=== PATIENT | male | born 1960 | race Hispanic/Latino ===

== ENCOUNTER 2017-04-15 07:19 | Day surgery (SDC) | payer MEDICARE ==
[2017-04-15] MEDS ORDERED: ECOTRIN PO NR (08:30)
[2017-04-15 08:39] LABS: Basophils % (Auto) 0.8 % (0.0-1.8); Eosinophils % (Auto) 6.4 % (0.0-4.3); Hematocrit 44.6 % (35.5-45.6); Hemoglobin 15.1 gm/dl (11.8-15.2); Mean Corpuscular HGB Conc 34 % (32-34); Mean Corpuscular Hemoglobin 32 pg (28-32); Mean Corpuscular Volume 95 fl (84-94); Platelet Count 113 K/mm3 (140-440); Red Blood Count 4.69 M/mm3 (3.65-5.03); Red Cell Distribution Width 14.5 % (13.2-15.2); White Blood Count 6.5 K/mm3 (4.5-11.0)
[2017-04-15] MEDS ORDERED: NACL 0.9% 500 ML 500 ML IV SCH (09:00)
[2017-04-15 09:25] LABS: INR 1.15 (0.87-1.13)
[2017-04-15 10:11] LABS: Anion Gap 17 mmol/L; BUN/Creatinine Ratio 18.57; Blood Urea Nitrogen 13 mg/dL (9-20); Calcium 8.8 mg/dL (8.4-10.2); Carbon Dioxide 22 mmol/L (22-30); Chloride 102.6 mmol/L (98-107); Glucose 111 mg/dL (75-100); Potassium 4.2 mmol/L (3.6-5.0); Sodium 137 mmol/L (137-145)
[2017-04-15] MEDS ORDERED: CALAN ONE (11:04)
[2017-04-15] MEDS ORDERED: NITROGLYCERIN SYRINGE 3 ML ONE (11:04)
[2017-04-15] MEDS ORDERED: HEPARIN/NS 5000 UNIT/500ML(CATH LAB) 1,000 ML IR ONE (11:04)
[2017-04-15] MEDS ORDERED: HEPARIN 10,000 UNITS/10 ML ONE (11:04)
[2017-04-15] MEDS: VERSED ONE ×3 (11:20→11:55)
[2017-04-15] MEDS: SUBLIMAZE ONE ×2 (11:20→11:46)
[2017-04-15] MEDS: XYLOCAINE 2% INFILTRATI ONE ×2 (11:31→11:47)
[2017-04-15] MEDS ORDERED: ULTRAM PO ONE (12:33)
--- NOTE | 2017-04-15 12:43 | Discharge Summary ---
Short Stay Discharge Plan Activity: advance as tolerated Weight Bearing Status: Partial Weight Bearing Diet: low fat, low cholesterol, low salt Wound: keep clean and dry Special Instructions: no heavy lifting (3 days) Follow up with: DENG VASQUEZ MD [Primary Care Provider] - 7 Days MARK AMBRIZ MD [Staff Physician] - 7 Days
--- NOTE | 2017-04-15 12:55 | Operative Report ---
Operative Report Operative Report: Cardiac catheterization report Date of procedure: 04/15/2017 Procedure: Left heart catheterization and left ventricle angiography Selective coronary angiography The patient was prepped and draped in a sterile fashion after informed consent. Right femoral artery was entered using Seldinger technique followed by placement of a 6 Faroese sheath. Left and right coronary angiography was performed using a 4 left Drake #4 right Drake catheters. The eye Drake was used for left ventricle angiography. The catheters were removed, sheath removed and hemostasis achieved using an Angio-Seal device. The patient was returned to the post procedure unit in stable condition. medications. Findings: Hemodynamics: Ventricle end-diastolic pressure was 9, ascending aorta pressure 108/56. There was no significant pressure gradient on pullback across aortic valve. Coronary angiography: Left main coronary artery was angiographically normal. There was moderate to severe calcification of the proximal to mid left anterior descending artery. This was associated with mild luminal irregularities without significant obstruction. Otherwise, the rest of the LAD and diagonal branches were angiographically normal. A medium-sized ramus intermedius artery was angiographically normal. The circumflex artery and its obtuse marginal branches were angiographically normal. The right coronary artery was dominant and similarly angiographically normal. Left ventricular chamber size and systolic function are within normal limits, ejection fraction 50-55%. Conclusion: Moderate to severe calcification of the proximal to mid LAD. No significant obstructive coronary artery disease. Left Ventricle systolic function at lower limits of normal, ejection fraction 50 -55%. Recommendation: Aggressive risk factor modification and medical therapy.
[2017-04-15] MEDS ORDERED: NACL 0.9% 1000 ML 1,000 ML IV SCH (13:00)
[2017-04-15 16:23] VITALS: BP 114/66
== END 2017-04-15 17:00 | disposition home or self-care (01) ==
LOC: OPU 07:19
PROVIDERS: ATTEND Internal Medicine Cardiovascular Disease
DX: I25.10 Atherosclerotic heart disease of native coronary artery without angina pectoris (principal); I10 Essential (primary) hypertension; Z79.899 Other long term (current) drug therapy
CPT/HCPCS: 36415; 80048; 85025; 85610; 85730; 93005; 93010; 93458; C1760; C1894; J1644; J2250; J3010; J7040; Q9967

== ENCOUNTER 2017-04-17 12:43 | Emergency (ER) | payer MEDICARE ==
[2017-04-17] MEDS ORDERED: MORPHINE IV ONE (16:25)
[2017-04-17 17:15] LABS: Eosinophils % (Auto) 2.2 % (0.0-4.3); Hematocrit 43.5 % (35.5-45.6); Hemoglobin 14.8 gm/dl (11.8-15.2); Mean Corpuscular HGB Conc 34 % (32-34); Mean Corpuscular Hemoglobin 33 pg (28-32); Mean Corpuscular Volume 97 fl (84-94); Platelet Count 112 K/mm3 (140-440); Red Cell Distribution Width 14.2 % (13.2-15.2); White Blood Count 10.2 K/mm3 (4.5-11.0)
[2017-04-17] MEDS ORDERED: DILAUDID ONE (17:30)
[2017-04-17] MEDS ORDERED: DILAUDID IV ONE (17:39)
--- NOTE | 2017-04-17 17:48 | Emergency Department Report ---
HPI - General Chief Complaint: Extremity Injury, Lower Time Seen by Provider: 04/17/17 15:58 - HPI HPI: This is a 56-year-old male presents to the emergency Department with pain to the upper right thigh and groin has been going on since yesterday. The patient had a heart cath in which they went in in the right groin/leg 2 days ago. He was having some mild discomfort after the procedure, however yesterday , after the patient went and opened a sliding glass door he began having progressively worsening and significant pain in this area. He called and spoke with the cardiologists at [facility] and they told him to come to the emergency department for further evaluation. He did not have any pain medication to take. The pain feels like it radiates from his buttock down into the thigh. There is no skin color changes, swelling. He denies any problems with urination or bowel movements. He denies any pain in the penis or testicles. He originally had the heart cath done secondary to a abnormal stress test. He denies any chest pain, shortness breath, fever, nausea or vomiting. ED Past Medical Hx - Past Medical History Hx Hypertension: Yes Hx Arthritis: Yes Hx Kidney Stones: Yes Additional medical history: esophogeal varicies. liver failure - Surgical History Additional Surgical History: banding of varicies. Right knee OR - Social History Smoking Status: Current Every Day Smoker Substance Use Type: None - Medications Home Medications: Home Medications Medication Instructions Recorded Confirmed Last Taken Type Diltiazem Cd [Cardizem CD] 240 mg PO DAILY 12/20/14 04/15/17 04/15/17 06:00 History Olmesartan (Nf) [Benicar] 20 mg PO QDAY 12/20/14 04/15/17 04/15/17 06:00 History Metoprolol [Lopressor TAB] 25 mg PO BID 04/15/17 04/15/17 04/15/17 06:00 History Zolpidem [Ambien] 10 mg PO HS 04/15/17 04/15/17 04/14/17 History 10mg oxyCODONE /ACETAMINOPHEN [Percocet 1 tab PO Q6HR PRN #10 tablet 04/17/17 Unknown Rx 5/325] ED Review of Systems ROS: Stated complaint: GROIN PAIN Other details as noted in HPI Comment: All other systems reviewed and negative Constitutional: denies: chills, fever Eyes: denies: eye pain, eye discharge, vision change ENT: denies: ear pain, throat pain Respiratory: denies: cough, shortness of breath, wheezing Cardiovascular: denies: chest pain, palpitations Gastrointestinal: denies: abdominal pain, nausea, diarrhea Genitourinary: denies: dysuria, discharge Musculoskeletal: arthralgia, myalgia Skin: denies: rash, lesions Neurological: denies: headache, weakness, paresthesias Physical Exam - Physical Exam Vital Signs: Vital Signs 04/17/17 04/17/17 12:48 16:13 Temperature 98.1 F 98 F Pulse Rate 74 61 Respiratory 20 18 Rate Blood Pressure 143/78 Blood Pressure 134/66 [Left] O2 Sat by Pulse 97 97 Oximetry Physical Exam: GENERAL: The patient is well-developed well-nourished. HEENT: Normocephalic. Atraumatic. Extraocular motions are intact. Patient has moist mucous membranes. Pupils equal reactive to light bilaterally. NECK: Supple. Trachea is midline. CHEST/LUNGS: Clear to auscultation. There is no respiratory distress noted. HEART/CARDIOVASCULAR: Regular. There is no tachycardia. There is no gallop rub or murmur. ABDOMEN: Abdomen is soft, nontender. Patient has normal bowel sounds. There is no abdominal distention. SKIN: Skin is warm and dry. There is no erythema, ecchymosis or swelling to the site insertion for the heart cath. NEURO: The patient is awake, alert, and oriented. The patient is cooperative. The patient has no focal neurologic deficits. The patient has normal speech. Patient walks gingerly secondary to the pain in the right thigh but there are otherwise no gait abnormalities and he appears stable. MUSCULOSKELETAL: There is no tenderness or deformity. There is no limitation range of motion. There is no evidence of acute injury. Muscle strength 5 out of 5 upper and lower extremities bilaterally. Femoral pulse +2 over 4 on the right. ED Course Vital Signs 04/17/17 04/17/17 12:48 16:13 Temperature 98.1 F 98 F Pulse Rate 74 61 Respiratory 20 18 Rate Blood Pressure 143/78 Blood Pressure 134/66 [Left] O2 Sat by Pulse 97 97 Oximetry ED Medical Decision Making - Lab Data Result diagrams: 04/17/17 17:02 - Medical Decision Making 56-year-old male presents with progressively worsening right groin and thigh pain that radiates towards his buttock going on since yesterday after the patient had a heart catheterization in which they inserted into the right femoral region. I examined the area and there is no sign of any hematoma, cellulitis or any skin color changes. It is slightly tender to palpation but the pain appears to be worse in the areas that is not reproducible. Based on the description of where his pain is, it sounds like he might have an exacerbation of sciatica or some type of neuropathy. Femoral pulses good and he appears neurovascularly intact. Good muscle strength. A CBC was done that did not show any anemia or leukocytosis. Patient was given a dose of pain medication and upon reevaluation is feeling greatly improved. He was able to ambulate in the emergency department and appears stable and doing so. He has good follow-up with both cardiology and primary care. He will return to the ER with any worsening of symptoms or any acute distress. - Differential Diagnosis sciatica, neuropathy, hematoma, contusion Critical Care Time: No Critical care attestation.: If time is entered above; I have spent that time in minutes in the direct care of this critically ill patient, excluding procedure time. 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 Return to the emergency department with any worsening of her symptoms or any acute distress. You've been prescribed a medication that is sedating. Therefore this medication cannot be mixed with alcohol, or taken prior to driving, working, or being responsible for children. Prescriptions: oxyCODONE /ACETAMINOPHEN [Percocet 5/325] 1 tab PO Q6HR PRN #10 tablet PRN Reason: Pain Referrals: DENG VASQUEZ MD [Primary Care Provider] - 3-5 Days Time of Disposition: 17:49
[2017-04-17 18:04] VITALS: BP 104/53
== END 2017-04-17 18:04 | disposition home or self-care (01) ==
LOC: ED 12:43
DX: M79.651 Pain in right thigh (principal); I10 Essential (primary) hypertension; M19.90 Unspecified osteoarthritis, unspecified site; F17.200 Nicotine dependence, unspecified, uncomplicated
CPT/HCPCS: 36415; 85025; 96374; 96375; 99283; J1170; J2270

== ENCOUNTER 2017-05-17 08:16 | Observation (INO) | payer MEDICARE ==
[~2017-05-17 08:16] MED LIST: ANCEF/STERILE WATER 2 GM/20 ML 2 GM/20 ML SYRINGE IV NR
--- NOTE | 2017-05-17 10:12 | Anesthesia Consultation ---
Anesthesia Consult and Med Hx Date of service: 05/17/17 - Airway Anesthetic Teeth Evaluation: Good ROM Head & Neck: Adequate Mental/Hyoid Distance: Adequate Mallampati Class: Class II Intubation Access Assessment: Probably Good - Pulmonary Exam CTA: Yes - Cardiac Exam Cardiac Exam: RRR - Pre-Operative Health Status ASA Pre-Surgery Classification: ASA3 Proposed Anesthetic Plan: General - Pulmonary Hx Smoking: Yes - Cardiovascular System Hx Hypertension: Yes Hx Coronary Artery Disease: Yes - Central Nervous System Hx Back Pain: Yes Hx Psychiatric Problems: No - Endocrine Hx Cirrhosis: Yes (past hx "recovering") - Hematic Hx Anemia: Yes - Other Systems Hx Alcohol Use: Yes 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
--- NOTE | 2017-05-17 10:13 | Anesthesia Day of Surgery ---
Anesthesia Day of Surgery - Day of Surgery Patient Examined: Yes Patient H&P Reviewed: Yes Patient is NPO: Yes Beta Blockers: Yes
[2017-05-17] MEDS: NACL 0.9% 1000 ML 1,000 ML IV SCH ×2 (10:25→20:31)
[2017-05-17 10:41] LABS: Basophils % (Auto) 1.3 % (0.0-1.8); Eosinophils % (Auto) 3.9 % (0.0-4.3); Hematocrit 43.1 % (35.5-45.6); Hemoglobin 14.6 gm/dl (11.8-15.2); Mean Corpuscular HGB Conc 34 % (32-34); Mean Corpuscular Hemoglobin 32 pg (28-32); Mean Corpuscular Volume 95 fl (84-94); Platelet Count 112 K/mm3 (140-440); Red Blood Count 4.54 M/mm3 (3.65-5.03); Red Cell Distribution Width 14.5 % (13.2-15.2); White Blood Count 7.4 K/mm3 (4.5-11.0)
[2017-05-17] MEDS ORDERED: PEPCID PO NR (11:00)
[2017-05-17] MEDS ORDERED: VERSED IV NR (11:00)
[2017-05-17] MEDS ORDERED: XYLOCAINE MPF 2% ONE (11:16)
[2017-05-17] MEDS ORDERED: ZEMURON IV ONE (11:16)
[2017-05-17] MEDS ORDERED: SUBLIMAZE ONE (11:16)
[2017-05-17] MEDS ORDERED: DIPRIVAN 10 MG/ML IV ONE (11:19)
[2017-05-17] MEDS ORDERED: NACL 0.9% 500 ML 500 ML ONE (11:29)
[2017-05-17] MEDS ORDERED: HEPARIN 10,000 UNITS/10 ML ONE ×2 (11:29→15:17)
[2017-05-17] MEDS ORDERED: RIFADIN ONE (11:29)
[2017-05-17] MEDS ORDERED: MARCAINE 0.5% 30 ML INFILTRATI ONE (11:29)
[2017-05-17] MEDS ORDERED: ePHEDrine SULFATE ONE (12:36)
[2017-05-17] MEDS ORDERED: DILAUDID ONE ×3 (12:59→16:08)
[2017-05-17] MEDS ORDERED: NACL 0.9% IR ONE (13:03)
[2017-05-17] MEDS ORDERED: HEPARIN 10,000 UNITS/10 ML 2,000 UNIT in NACL 0.9% 500 ML 500 ML IR ONE (13:04)
[2017-05-17] MEDS ORDERED: DECADRON ONE (15:17)
[2017-05-17] MEDS ORDERED: MARCAINE 0.5% INFILTRATI ONE (15:41)
[2017-05-17] MEDS ORDERED: ZOFRAN ONE (15:52)
[2017-05-17] MEDS: DILAUDID IV PRN ×4 (16:00→18:10)
--- NOTE | 2017-05-17 16:32 | Operative Report ---
Operative Report Operative Report: Operative note: Date: May 17 Preoperative diagnosis: Right Femoral pseudoaneurysm Postoperative diagnosis: Same. Operation: Right femoral exploration. Right femoral pseudoaneurysm repair with vein patch Surgeon: Shahrzad Nevarez. Asst.: River Salazar Anesthesia: Gen. 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 Indications: 56-year-old gentleman came to the office complaining of right leg edema and pain 1 months after cardiac cath with access site in the right femoral artery. He had ultrasound showing large pseudoaneurysm in the right femoral artery with wide and short neck. Patient was explained of pseudoaneurysm has not been suitable for conservative management or thrombin injection and recommended to have open repair. Patient understood risks, benefits and alternatives of procedure and chose to proceed, signed informed consent. Operative details: Patient was brought to the operating room and placed in supine position. She is right leg was prepped and draped in sterile fashion. Timeout was performed and all team members in the agreement. The incision was made with 15 blade on the anterior groin in the vertical fashion and carried down with electrocautery. The pseudoaneurysm was palpated and dissection was carried at the proximal portion to get proximal control. Crossing vessels were clipped and divided. Common femoral artery was identified and dissected. Silastic vessel loop was brought and taken on hemostat. Next, the pseudoaneurysm capsule was dissected and common femoral artery was followed toward SFA and profunda. Pseudoaneurysm capsule was very large and contained stretched femoral nerve and compressed femoral vein. The nerve was carefully dissected off the capsule with Metzenbaum scissors. The vein was also freed. Upon dissection of capsule it was unintentionally entered and was gained by finger occlusion. Patient was heparinized with 5000 units of heparin. Circulated for 3 minutes. The proximal control was achieved by placing angled DeBakey clamp and dissected common femoral artery. Capsule was and it was scissors and the whole identified and covered with finger. #3 Jairo with stopcock was positioned for distal control. The profunda and SFA were then dissected and taken on Silastic vessel loops. Distal ventral was gained by tightening the Vesseloops around SFA and profunda. Jairo was removed. Pseudoaneurysmal capsule was dissected off vessels and passed for a specimen. The identified access site was actually located in the proximal SFA. Arteriotomy was with Lambert scissors from the existent hole. There was no identified calcium or stenosis in the vessel . We decided to repair the vessel with vein patch. We dissected proximal portion of right greater saphenous vein and resected a tributary. It was irrigated with saline and opened to form a patch. Patch angioplasty was performed using 6-0 Prolene in circumferential fashion. It was flushed before completion. Residual stitches were placed. One repair stitch was placed. The completion of repair there was excellent distal pulse. 25 mg of protamine was given. Wound was checked for hemostasis. It was copiously irrigated with saline. Fibrillar was placed at the roll surface of capsule site. Incision was closed in layers with 3-0 Vicryl at the fascia and dermal. 4-0 Monocryl subcuticular stitch. Skin glue applied. All needle and sponge counts were correct 2. Patient tolerated procedure well. He was transferred to PACU in stable condition.
[2017-05-17] MEDS ORDERED: NARCAN 0.4 MG/1 ML IV PRN (16:39)
[2017-05-17] MEDS ORDERED: ZOFRAN IV PRN (16:39)
[2017-05-17] MEDS ORDERED: MORPHINE IV PRN ×2 (16:39)
[2017-05-17] MEDS ORDERED: ANCEF/NS 1 GM/50 ML 1 GM/50 ML BAG IV SCH (18:00)
[2017-05-17] MEDS: ANCEF/NS 1 GM/50 ML 1 GM/50 ML BAG IV SCH (20:32)
[2017-05-17] MEDS: LOPRESSOR PO SCH (22:00)
[2017-05-17] MEDS ORDERED: AMBIEN PO SCH (22:00)
[2017-05-17] MEDS: NORCO 5/325 PO PRN (23:59)
[2017-05-18] MEDS: ANCEF/NS 1 GM/50 ML 1 GM/50 ML BAG IV SCH (04:40)
[2017-05-18 05:18] LABS: Hemoglobin 12.3 gm/dl (11.8-15.2); Mean Corpuscular HGB Conc 34 % (32-34); Mean Corpuscular Hemoglobin 33 pg (28-32); Mean Corpuscular Volume 96 fl (84-94); Red Blood Count 3.76 M/mm3 (3.65-5.03); Red Cell Distribution Width 14.5 % (13.2-15.2); White Blood Count 7.5 K/mm3 (4.5-11.0)
[2017-05-18 05:19] LABS: Hematocrit 36.3 % (35.5-45.6); Hemoglobin 12.3 gm/dl (11.8-15.2)
[2017-05-18 05:22] LABS: Hematocrit 36.1 % (35.5-45.6); Platelet Count 87 K/mm3 (140-440)
[2017-05-18 05:28] LABS: INR 1.29 (0.87-1.13)
[2017-05-18 05:31] LABS: Anion Gap 17 mmol/L; Blood Urea Nitrogen 12 mg/dL (9-20); Calcium 7.9 mg/dL (8.4-10.2); Carbon Dioxide 21 mmol/L (22-30); Chloride 100.7 mmol/L (98-107); Glucose 173 mg/dL (75-100); Potassium 4.3 mmol/L (3.6-5.0); Sodium 134 mmol/L (137-145)
[2017-05-18] MEDS ORDERED: PLAVIX PO SCH (10:00)
[2017-05-18] MEDS ORDERED: CARDIZEM CD PO SCH ×2 (10:00)
[2017-05-18] MEDS ORDERED: LOVENOX SUB-Q SCH (10:00)
[2017-05-18] MEDS ORDERED: COZAAR PO SCH (10:00)
[2017-05-18] MEDS ORDERED: NON-FORMULARY (Olmesartan (Nf) 20 MG) PO SCH (10:00)
[2017-05-18] MEDS: NORCO 5/325 PO PRN (10:08)
[2017-05-18] MEDS: LOPRESSOR PO SCH (10:14)
--- NOTE | 2017-05-18 10:34 | Admit Criteria Form ---
Admission Criteria Documentation: AMBULATORY SURGERY EXCEPTION CRITERIA Ambulatory Surgery Exception Criteria ( Place 'X' for any and all applicable criteria): Surgery or procedure performed on ambulatory basis may require inpatient stay for[A] ANY ONE of the following(1)(2)(3)(4)(5)(6)(7)(8)(9): [X] I. A preoperative situation, condition, or finding that warrants inpatient stay as indicated by ANY ONE of the following: [] a) Inpatient care needed because of severity of a disease or condition rather than the surgery (eg, severe cardiac or respiratory disease, severe infection) (15) (16 ) (17) (18) [] b) Emergent procedure (eg, angioplasty for acute ischemia)(19) [] c) Complex surgical approach or situation as indicated by ANY ONE of the following(3): [] i) Open approach needed instead of usual endoscopic, transcatheter, or other less invasive procedure [] ii) Difficult approach because of previous operation [] iii) Airway monitoring required after open neck procedures(20)(21) [] iv) Large mass requiring unusually extensive dissection [] v) Additional complicating feature requiring inpatient care (eg, drain management)(22(23): [X] d) Major surgery in a pt with high anesthetic risk as indicated by ANY ONE of the following (2)(3)(5)(7)(8): [X] i) ASA risk class III or higher (severe systemic disease impairing function) [D] [] ii) Advanced age (eg, older than 85 years)(14)(24) [] iii) Symptomatic heart failure(25) [] iv) Symptomatic asthma or COPD(8)(21) [] v) Morbid obesity with hemodynamic or respiratory problems(20)( 21)(26)(27) [] vi) Obstructive sleep apnea(20)(21) [] vii) Former premature infants who are younger than 60 weeks [] viii) High risk for severe postoperative abnormalities (eg, severe postoperative hypocalcemia after parathyroidectomy for severe hyperparathyroidism)(27)( 28) [] ix) Unstable angina(25) [] e) Drug-related risk requiring inpatient stay as indicated by ANY ONE of the following(5)(10)(14)(32)(33) [] i) Procedure requires discontinuing drugs or other therapy (eg , antiarrhythmic medication, antiseizure medication), which necessitates inpatient observation or treatment.(18)(31) [] ii) Major surgery and high risk drug use as indicated by ANY ONE of the following: [] 1) Active abuse of cocaine or similar drug [] 2) Monoamine oxidase inhibitor use [] 3) Other drug identified as posing risk [] f) Inadequate outpatient care situation as indicated by ANY ONE of the following(5)(10)(14)(32)(33) [] i) Patient lives remote from medical facility and procedure has urgent complication potential, and temporary nearby residence cannot be arranged [] ii) Patient will have postprocedure incapacitation and inadequate assistance at home, or alternative level of care cannot be arranged. [] iii) Patient will have long general anesthesia or procedure side effect resolution time, and competent person to stay with patient on first postoperative night at home or alternative level of care cannot be arranged. []iv) Other inadequate outpatient situation that cannot be handled by other means [] II. A perioperative event, condition, or finding that warrants inpatient stay as indicated by ANY ONE of the following (1)(2)(3): [] a) Inadequate physiologic recovery: cardiovascular, respiratory, or hemodynamic status not normal or near preoperative baseline(18) [] b) Hemodynamic instability [] c) Patient not alert with near normal or baseline mental status [] d) Temperature not normal or as expected and not appropriate for outpatient treatment of condition [] e) Ambulatory or appropriate activity level status not yet achieved post procedure [E](34)(35)(36) [] f) Operative site not appropriate (eg, unexpected or excessive drainage or bleeding) [] g) Postoperative effects not resolved or adequately managed (eg, significant pain or vomiting not appropriate for outpatient or next level of care)(10)(12) [] h) Complicating features requiring inpatient care as indicated by ANY ONE of the following(37): [] i) Severe complications of procedure (eg, bowel injury, airway compromise, vascular injury,severe hemorrhage) [] ii) Extensive (eg, dissection far beyond usual scope of procedure ) or prolonged (eg, 120 minutes beyond usual) surgery needed requiring inpatient postoperative care [] iii) Conversion to an open or complex procedure that requires inpatient care (eg, open vs laparoscopic cholecystectomy, abdominal vs vaginal hysterectomy)(38) [] iv) Comorbid condition or test result identified during or post procedure that requires inpatient care (7) [] v) Malignant hyperthermia(30) [] vi) Other complicating feature requiring inpatient care(22)(23) Inpatient stay may be needed until ALL of the following are present (1)(2)(3)(4) (5)(6)(10)(14)(33)(40): []a) Physiologic recovery: cardiovascular, respiratory, and hemodynamic status normal or near preoperative baseline []b) Hemodynamic stability []c) Patient alert, with near normal or baseline mental status []d) Temperature appropriate: patient afebrile or temperature appropriate for outpt treatment of condition []e) Activity level appropriate: ambulatory or appropriate activity level post procedure []f) Operative site appropriate as indicated by ALL of the following: []i) Site dry or with expected drainage []ii) Any blood noted is as expected for procedure. []g) Postoperative effects resolved or managed as indicated by ALL of the following: []i) Pain management appropriate for outpatient (or next level of) care(10) []ii) Minimal nausea and vomiting: if present, successfully treated with oral medication(12) []iii) Headache, dizziness, or drowsiness (if present) are mild. []h) Voiding status acceptable as indicated by ANY ONE of the following: []i) Voiding spontaneously []ii) No voiding but instructions given for follow-up in 6 to 8 hours []iii) Urinary catheter in place, and instructions given for follow-up []i) Complicating features requiring inpatient care manageable at a lower level of care(37) []j) Comorbid conditions manageable at a lower level of care(37) The original [employer] content created by [employer] has been revised. The portions of the content which have been revised are identified through the use of italic text or in bold, and [employer] has neither reviewed nor approved the modified material. All other unmodified content is copyright [employer]. Please see references footnoted in the original [employer] edition 2016
--- NOTE | 2017-05-18 11:17 | Progress Note ---
Assessment and Plan Plan: 1. Continue pain management 2. Ambulate patient 3. f/u DVT ultrasound evaluation 4. If pt ambulates and DVT study is negative, then d/c patient and f/u with [place] on Monday 05/21. The patient wishes to travel on the . Subjective Date of service: 05/18/17 Interval history: Pt says he feels much better overall, although there is aching at his surgical site. He states his right foot feels better than it has for weeks. He has not yet gotten up out of bed to ambulate. Objective - Constitutional Vitals: Vital Signs - 12hr 05/17/17 05/17/17 05/17/17 23:21 23:31 23:41 Temperature Pulse Rate 64 64 71 Respiratory 14 13 13 Rate Blood Pressure 93/51 93/51 93/51 O2 Sat by Pulse 90 88 89 Oximetry 05/17/17 05/17/17 05/17/17 23:51 23:57 23:59 Temperature Pulse Rate 62 68 Respiratory 16 11 L 12 Rate Blood Pressure 93/51 93/51 O2 Sat by Pulse 93 93 Oximetry 05/18/17 05/18/17 05/18/17 00:00 00:11 00:13 Temperature 98.6 F Pulse Rate 59 L 58 L Respiratory 15 12 Rate Blood Pressure 114/62 114/62 O2 Sat by Pulse 94 93 Oximetry 05/18/17 05/18/17 05/18/17 00:21 00:31 00:41 Temperature Pulse Rate 58 L 59 L 65 Respiratory 12 15 18 Rate Blood Pressure 114/62 114/62 114/62 O2 Sat by Pulse 91 92 91 Oximetry 05/18/17 05/18/17 05/18/17 00:45 00:51 00:59 Temperature Pulse Rate 57 L Respiratory 17 15 Rate Blood Pressure 114/62 O2 Sat by Pulse 95 95 Oximetry 05/18/17 05/18/17 05/18/17 01:00 01:11 01:21 Temperature Pulse Rate 59 L 62 57 L Respiratory 13 17 14 Rate Blood Pressure 101/62 101/62 101/62 O2 Sat by Pulse 95 94 94 Oximetry 05/18/17 05/18/17 05/18/17 01:31 01:41 01:51 Temperature Pulse Rate 56 L 60 55 L Respiratory 16 20 16 Rate Blood Pressure 101/62 101/62 101/62 O2 Sat by Pulse 94 91 95 Oximetry 05/18/17 05/18/17 05/18/17 02:01 02:11 02:21 Temperature Pulse Rate 76 58 L 53 L Respiratory 20 15 13 Rate Blood Pressure 101/62 98/57 98/57 O2 Sat by Pulse 91 93 94 Oximetry 05/18/17 05/18/17 05/18/17 02:31 02:41 02:45 Temperature Pulse Rate 62 64 Respiratory 14 14 15 Rate Blood Pressure 98/57 98/57 O2 Sat by Pulse 92 93 95 Oximetry 05/18/17 05/18/17 05/18/17 02:51 03:00 03:11 Temperature Pulse Rate 55 L 55 L 66 Respiratory 17 12 17 Rate Blood Pressure 98/57 106/47 106/47 O2 Sat by Pulse 94 94 94 Oximetry 05/18/17 05/18/17 05/18/17 03:21 03:31 03:41 Temperature Pulse Rate 64 57 L 70 Respiratory 11 L 15 15 Rate Blood Pressure 106/47 106/47 106/47 O2 Sat by Pulse 93 95 95 Oximetry 05/18/17 05/18/17 05/18/17 03:51 04:00 04:01 Temperature 98.6 F Pulse Rate 64 64 Respiratory 15 12 Rate Blood Pressure 106/47 106/47 O2 Sat by Pulse 91 94 Oximetry 05/18/17 05/18/17 05/18/17 04:11 04:21 04:31 Temperature Pulse Rate 61 66 58 L Respiratory 13 18 13 Rate Blood Pressure 106/47 106/47 106/47 O2 Sat by Pulse 93 91 92 Oximetry 05/18/17 05/18/17 05/18/17 04:41 04:51 05:00 Temperature Pulse Rate 55 L 58 L 66 Respiratory 13 15 14 Rate Blood Pressure 106/47 106/47 103/60 O2 Sat by Pulse 94 94 93 Oximetry 05/18/17 05/18/17 05/18/17 05:11 05:21 05:31 Temperature Pulse Rate 55 L 59 L 54 L Respiratory 14 12 12 Rate Blood Pressure 103/60 103/60 103/60 O2 Sat by Pulse 96 93 93 Oximetry 05/18/17 05/18/17 05/18/17 05:41 05:51 06:00 Temperature Pulse Rate 59 L 61 57 L Respiratory 14 15 13 Rate Blood Pressure 103/60 103/60 109/59 O2 Sat by Pulse 92 92 93 Oximetry 05/18/17 05/18/17 05/18/17 06:11 06:21 06:31 Temperature Pulse Rate 62 66 58 L Respiratory 13 16 12 Rate Blood Pressure 109/59 109/59 109/59 O2 Sat by Pulse 91 93 96 Oximetry 05/18/17 05/18/17 05/18/17 06:41 06:51 07:01 Temperature Pulse Rate 62 61 63 Respiratory 12 11 L 16 Rate Blood Pressure 109/59 109/59 117/66 O2 Sat by Pulse 92 93 93 Oximetry 05/18/17 05/18/17 05/18/17 07:11 07:21 07:31 Temperature Pulse Rate 61 62 74 Respiratory 14 14 18 Rate Blood Pressure 117/66 117/66 117/66 O2 Sat by Pulse 92 94 91 Oximetry 05/18/17 05/18/17 05/18/17 07:41 07:51 08:00 Temperature Pulse Rate 61 61 55 L Respiratory 13 13 10 L Rate Blood Pressure 117/66 117/66 118/60 O2 Sat by Pulse 94 93 94 Oximetry 05/18/17 05/18/17 05/18/17 10:08 10:13 10:14 Temperature Pulse Rate 57 L 57 L Respiratory 12 Rate Blood Pressure 105/54 105/54 O2 Sat by Pulse Oximetry General appearance: Present: no acute distress - EENT ENT: hearing intact Extremity abnormal: tenderness (ecchymosis around surgical site. No pulsatile mass or fullness. TTP. incision intact. palpable PT and DP right pulses.) - Labs CBC & Chem 7: 05/18/17 04:04 05/18/17 04:04 Labs: Abnormal lab results 05/18/17 05/18/17 05/18/17 Range/Units 04:04 04:04 04:04 MCV 96 H (84-94) fl MCH 33 H (28-32) pg Plt Count 87 L (140-440) K/mm3 PT 16.0 H (12.2-14.9) Sec. INR 1.29 H (0.87-1.13) Sodium 134 L (137-145) mmol/L Carbon Dioxide 21 L (22-30) mmol/L Creatinine 0.6 L (0.8-1.5) mg/dL Glucose 173 H (75-100) mg/dL Calcium 7.9 L (8.4-10.2) mg/dL
--- NOTE | 2017-05-18 11:38 | Consultation ---
History of Present Illness - Reason for Consult Consult date: 05/18/17 Post op ICU monitoring - History of Present Illness 56 y/o status post fem bypass on yesterday. No acute events overnight. Walking around ICU now with help from nursing. Seen by vascular this am already. Past History Past Medical History: atrial fib, GERD, other (insomnia) Past Surgical History: No surgical history Social history: no significant social history Family history: no significant family history Medications and Allergies Allergies Allergy/AdvReac Type Severity Reaction Status Date / Time No Known Allergies Allergy Verified 05/14/17 17:31 Home Medications Medication Instructions Recorded Confirmed Last Taken Type Diltiazem Cd [Cardizem CD] 240 mg PO DAILY 12/20/14 05/17/17 05/17/17 History Olmesartan (Nf) [Benicar] 20 mg PO QDAY 12/20/14 05/17/17 05/17/17 History Metoprolol [Lopressor TAB] 25 mg PO BID 04/15/17 05/17/17 05/17/17 History Zolpidem [Ambien] 10 mg PO HS 04/15/17 05/17/17 05/16/17 History Acetaminophen [Acetaminophen 8 650 mg PO PRN PRN 05/14/17 05/17/17 05/16/17 History Hour] Clopidogrel Bisulfate [Plavix] 75 mg PO DAILY 05/14/17 05/17/17 05/17/17 History Active Meds: Active Medications Acetaminophen/Hydrocodone Bitart ([place] 5/325) 2 each PO Q6H PRN PRN Reason: Pain, Moderate (4-6) Last Admin: 05/18/17 10:08 Dose: 2 each Clopidogrel Bisulfate (Plavix) 75 mg PO DAILY [facility] Last Admin: 05/18/17 10:08 Dose: 75 mg Diltiazem HCl (Cardizem Cd) 240 mg PO QDAY [facility] Last Admin: 05/18/17 10:13 Dose: Not Given Enoxaparin Sodium (Lovenox) 40 mg SUB-Q QDAY [facility] Last Admin: 05/18/17 10:11 Dose: 40 mg Hydromorphone HCl (Dilaudid) 0.5 mg IV Q10MIN PRN PRN Reason: Pain , Severe (7-10) Stop: 05/20/17 16:01 Last Admin: 05/17/17 18:10 Dose: 0.5 mg Sodium Chloride (Nacl 0.9% 1000 Ml) 1,000 mls @ 42 mls/hr IV DIRECT [facility] Last Admin: 05/17/17 20:31 Dose: 42 mls/hr Losartan Potassium (Cozaar) 50 mg PO QDAY [facility] Last Admin: 05/18/17 10:13 Dose: Not Given Metoprolol Tartrate (Lopressor) 25 mg PO BID [facility] Last Admin: 05/18/17 10:14 Dose: Not Given Morphine Sulfate (Morphine) 2 mg IV Q4H PRN PRN Reason: Pain, Moderate (4-6) Morphine Sulfate (Morphine) 4 mg IV Q4H PRN PRN Reason: Pain , Severe (7-10) Naloxone HCl (Narcan 0.4 Mg/1 Ml) 0.1 mg IV Q2MIN PRN PRN Reason: Res Rate </= 8 or 02 SAT < 92% Ondansetron HCl (Zofran) 4 mg IV Q8H PRN PRN Reason: Nausea And Vomiting Pneumococcal Polyvalent Vaccine (Pneumovax 23) 0.5 ml IM .ONCE ONE Stop: 05/19/17 12:01 Zolpidem Tartrate (Ambien) 10 mg PO HS [facility] Last Admin: 05/17/17 23:58 Dose: 10 mg Review of Systems All systems: negative Exam - Constitutional Vitals: Temp Pulse Resp BP Pulse Ox 98.6 F 57 L 12 105/54 94 05/18/17 04:00 05/18/17 10:14 05/18/17 10:08 05/18/17 10:14 05/18/17 08:00 General appearance: Present: no acute distress - EENT Eyes: Present: PERRL, EOM intact ENT: hearing intact, clear oral mucosa, dentition normal - Neck Neck: Present: supple, normal ROM - Respiratory Respiratory effort: normal Respiratory: bilateral: CTA - Cardiovascular Rhythm: regular - Extremities Extremities: abnormal (post surgical changes) Results - Labs CBC & Chem 7: 05/18/17 04:04 05/18/17 04:04 Labs: Abnormal lab results 05/18/17 05/18/17 05/18/17 Range/Units 04:04 04:04 04:04 MCV 96 H (84-94) fl MCH 33 H (28-32) pg Plt Count 87 L (140-440) K/mm3 PT 16.0 H (12.2-14.9) Sec. INR 1.29 H (0.87-1.13) Sodium 134 L (137-145) mmol/L Carbon Dioxide 21 L (22-30) mmol/L Creatinine 0.6 L (0.8-1.5) mg/dL Glucose 173 H (75-100) mg/dL Calcium 7.9 L (8.4-10.2) mg/dL Assessment and Plan 56 y/o male, status post fem bypass 1. Agree with vascular, OOB to chair and ambulate 2. Pain control 3. Follow up dopplers 4. Possible discharge vs transfer out of unit later this afternoon.
--- NOTE | 2017-05-18 12:18 | Discharge Summary ---
Providers - Providers Date of Admission: 05/17/17 16:40 Date of discharge: 05/18/17 Attending physician: SHAHRZAD SMITH DO 05/17/17 18:15 Consult to Physician [CONS] Routine Consulting Provider: MIR DOZIER Reason For Exam: ICU ADMISSION Place consult to:: DR Candelaria DOZIER Notified:: YES Primary care physician: DENG VASQUEZ Hospitalization Reason for admission: right [employer] pseudoaneurysm Condition: Good Procedures: Date: May 17 Preoperative diagnosis: Right Femoral pseudoaneurysm Postoperative diagnosis: Same. Operation: Right femoral exploration. Right femoral pseudoaneurysm repair with vein patch Surgeon: Shahrzad Smith. Asst.: River Salazar Anesthesia: Gen. 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 Hospital course: Pt presented to our outpatient clinic with rt groin swelling and pain, along with rt foot pain and numbness. He was status post coronary angiography via rt [employer] access one month ago. He was found to have a rt [employer] pseudoaneurysm in the office and was sent to the hospital for repair. After surgical repair (see report) he did very well. His groin and foot pain subsided, and he ambulated well around the unit. Disposition: DC- TO HOME OR SELFCARE Core Measure Documentation - Palliative Care Palliative Care/ Comfort Measures: Not Applicable - Core Measures Any of the following diagnoses?: none Exam - Constitutional Vitals: Temp Pulse Resp BP Pulse Ox 98.6 F 77 12 111/53 90 05/18/17 04:00 05/18/17 11:31 05/18/17 11:00 05/18/17 11:31 05/18/17 11:31 General appearance: Present: no acute distress, well-nourished - EENT Eyes: Present: PERRL ENT: hearing intact, clear oral mucosa - Neck Neck: Present: supple, normal ROM - Respiratory Respiratory effort: normal - Cardiovascular Heart Sounds: Present: S1 & S2. Absent: rub, click - Extremities Extremities: pulses symmetrical, No edema Extremity abnormal: other (rt groin ecchymosis. No fullness or pulsatility. palpable right DP and PT) Plan Activity: advance as tolerated Weight Bearing Status: Weight Bear as Tolerated Diet: low cholesterol Wound: open to air, keep clean and dry Special Instructions: no heavy lifting (for 10 days (>20 lbs)) Follow up with: SHAHRZAD SMITH DO [Staff Physician] - 05/21/17 Prescriptions: HYDROcodone/APAP 5-325 [[place] 5-325 mg TAB] 2 each PO Q6H PRN #30 tablet PRN Reason: Pain, Moderate (4-6)
[2017-05-18 15:30] VITALS: BP 123/57
[2017-05-19] MEDS ORDERED: PNEUMOVAX 23 IM ONE (12:00)
--- NOTE | 2017-05-20 08:27 | Vascular Lab Report ---
LOWER EXTREMITY VENOUS DUPLEX: REASON FOR EXAM: Pain of the lower extremities. COMMENTS ON THE RIGHT: All veins visualized are freely compressible without evidence of internal echogenicity. Flow is spontaneous and phasic throughout. COMMENTS ON THE LEFT: All veins visualized are freely compressible without evidence of internal echogenicity. Flow is spontaneous and phasic throughout. IMPRESSION: No evidence of acute or chronic deep venous thrombosis in either lower extremity.
== END 2017-05-18 15:40 | disposition home or self-care (01) ==
LOC: OR 08:16 → CC1 16:40
PROVIDERS: ADMIT Surgery Vascular Surgery; ATTEND Surgery Vascular Surgery
DX: I72.4 Aneurysm of artery of lower extremity (principal); S70.01XA Contusion of right hip, initial encounter; S70.11XA Contusion of right thigh, initial encounter; T81.718A Complication of other artery following a procedure, not elsewhere classified, initial encounter; I70.221 Atherosclerosis of native arteries of extremities with rest pain, right leg; I10 Essential (primary) hypertension; C44.91 Basal cell carcinoma of skin, unspecified; K21.9 Gastro-esophageal reflux disease without esophagitis; X58.XXXA Exposure to other specified factors, initial encounter; Y93.89 Activity, other specified; Y92.89 Other specified places as the place of occurrence of the external cause; Y99.8 Other external cause status
CPT/HCPCS: 35141; 36415; 80048; 85014; 85018; 85025; 85027; 85610; 86850; 86900; 86901; 88304; 93970; 94760; 96365; 96372; 96375; 96376; C1757; G0378; J0690; J1100; J1170; J1644; J1650; J2250; J2270; J2405; J2704; J3010; J7030; J7040; 88311; J3490